=== PATIENT | male | born 1940 | race Two or more races ===

== ENCOUNTER 2022-07-17 20:24 | Observation (INO) ==
[2022-07-17 20:54] LABS: Basophils % 0.3 % (0.0-0.8); Hematocrit 27.9 VOL% (42.0-52.0); Hemoglobin 9.2 GM/DL (14.0-18.0); Immature Granulocytes % 0.5 %; Immature Granulocytes Absolute 0.07 #; Lymphocytes # 3.4 10*3/uL (1.4-4.0); Mean Corpuscular Volume 98.6 FL (87-102); Mean Platelet Volume 10.7 FL (9.6-12.0); Monocytes # 1.3 10*3/uL (0.11-0.8); Monocytes % 8.7 % (1.7-12.7); Neutrophils % 68.5 % (38.7-73.9); Platelet Count 451 T/CUMM (130-400); Red Blood Count 2.83 MC/CUMM (3.8-5.5); Red Cell Distribution Width 18.8 % (9.3-17.3); White Blood Count 15.5 T/CUMM (4-12)
[2022-07-17 21:03] LABS: INR 0.9; PT Patient Result 10.5 SECS (10.1-12.1)
[2022-07-17 21:15] LABS: Albumin 4.3 G/DL (3.4-5.0); Bilirubin,Total 0.8 MG/DL (0.20-1.00); Calcium 9.5 MG/DL (8.5-10.1); Osmolality,Calculated 290.1 MOS/KG (273-304); Total Protein 7.5 G/DL (6.4-8.2)
[2022-07-17] MEDS ORDERED: PROMETHAZINE 25 MG/1 ML VIAL IM STA (21:51)
[2022-07-17] MEDS ORDERED: MECLIZINE 25 MG TABLET PO STA (21:51)
[2022-07-17] MEDS ORDERED: SODIUM CHLORIDE 0.9% 500 ML IV STA (23:11)
[2022-07-17 23:34] LABS: Bilirubin,Urine Negative (Negative); Blood, Urine Negative (Negative); Glucose,Urine (UA) Negative (Negative); Ketones,Urine Negative (Negative); Mucus,Urine Occasional /LPF (Occasional); Nitrite,Urine Negative (Negative); Protein,Urine 30 mg/dL (Negative); RBC,Urine 1 /HPF (0-4); Urine Appearance CLEAR (Clear); Urine Color Straw (Yellow); Urine Urobilinogen < 2.0 eU/dL (<2.0)
[2022-07-18] MEDS ORDERED: PROMETHAZINE 25 MG/1 ML VIAL IM PRN (01:55)
[2022-07-18] MEDS ORDERED: ONDANSETRON 4 MG/2 ML VIAL IV PRN (01:55)
[2022-07-18] MEDS ORDERED: ACETAMINOPHEN 325 MG TABLET PO PRN (01:55)
[2022-07-18] MEDS ORDERED: hydrALAZINE 20 MG/1 ML VIAL IV PRN (01:55)
[2022-07-18] MEDS ORDERED: ALBUTEROL/IPRATROPIUM 3 ML NEB RESP TX PRN (02:51)
[2022-07-18] MEDS: LACTATED RINGERS 1,000 ML IV SCH ×2 (04:20→22:16)
[2022-07-18 04:37] LABS: Basophils % 0.1 % (0.0-0.8); Hematocrit 26.9 VOL% (42.0-52.0); Hemoglobin 9.1 GM/DL (14.0-18.0); Immature Granulocytes % 0.6 %; Immature Granulocytes Absolute 0.08 #; Lymphocytes # 1.1 10*3/uL (1.4-4.0); Lymphocytes % 7.9 % (21.2-54.2); Mean Corpuscular HGB Conc 33.8 GM/DL (32-36); Mean Corpuscular Volume 98.5 FL (87-102); Mean Platelet Volume 10.8 FL (9.6-12.0); Monocytes # 0.8 10*3/uL (0.11-0.8); Monocytes % 5.4 % (1.7-12.7); Platelet Count 407 T/CUMM (130-400); Red Blood Count 2.73 MC/CUMM (3.8-5.5); Red Cell Distribution Width 18.9 % (9.3-17.3); White Blood Count 14.1 T/CUMM (4-12)
[2022-07-18 04:49] LABS: Calcium 9.2 MG/DL (8.5-10.1); Osmolality,Calculated 286.3 MOS/KG (273-304)
[2022-07-18 04:56] LABS: Folate 12.14 NG/ML (5.38-24.0)
[2022-07-18 04:58] LABS: % Iron Saturation 16.9 % (18-50); Ferritin 530.3 ng/mL (26-388)
[2022-07-18] MEDS: SODIUM BICARBONATE 650 MG TABLET PO SCH ×2 (08:57→20:24)
[2022-07-18] MEDS: ATORVASTATIN 80 MG TABLET PO SCH (08:57)
[2022-07-18] MEDS: PANTOPRAZOLE 40 MG TABLET PO SCH (08:57)
[2022-07-18] MEDS: ASPIRIN EC 81 MG TABLET PO SCH (08:57)
[2022-07-18] MEDS: CHOLECALCIFEROL 1,000 UNIT TABLET PO SCH (09:30)
[2022-07-18] MEDS: ASCORBIC ACID 500 MG TABLET PO SCH (09:30)
[2022-07-18] MEDS: CALCIUM CARB MAG OX ZINC SULF PO SCH (14:05)
[2022-07-18] MEDS: prednisoLONE ACETATE 1% OPH SUSP 5 ML BOTTLE LEFT EYE SCH (20:23)
[2022-07-18] MEDS ORDERED: ENOXAPARIN 40 MG/0.4 ML SYRINGE SUBCUT SCH (21:00)
[2022-07-19] MEDS ORDERED: SODIUM CHLORIDE 0.65% NASAL SPRAY 45 ML BOTTLE BOTH NARES PRN (03:14)
[2022-07-19 07:53] LABS: Basophils % 0.3 % (0.0-0.8); Hematocrit 27.6 VOL% (42.0-52.0); Hemoglobin 9.1 GM/DL (14.0-18.0); Immature Granulocytes % 0.4 %; Immature Granulocytes Absolute 0.05 #; Lymphocytes # 2.5 10*3/uL (1.4-4.0); Lymphocytes % 21.1 % (21.2-54.2); Mean Corpuscular Volume 100.7 FL (87-102); Mean Platelet Volume 10.5 FL (9.6-12.0); Monocytes % 8.4 % (1.7-12.7); Neutrophils % 69.8 % (38.7-73.9); Platelet Count 398 T/CUMM (130-400); Red Blood Count 2.74 MC/CUMM (3.8-5.5); Red Cell Distribution Width 18.9 % (9.3-17.3); White Blood Count 11.6 T/CUMM (4-12)
[2022-07-19 08:08] LABS: Calcium 8.8 MG/DL (8.5-10.1); Osmolality,Calculated 296.4 MOS/KG (273-304); Potassium 3.9 MMOL/L (3.5-5.1)
[2022-07-19] MEDS: ASCORBIC ACID 500 MG TABLET PO SCH (08:39)
[2022-07-19] MEDS: ASPIRIN EC 81 MG TABLET PO SCH (08:39)
[2022-07-19] MEDS: ATORVASTATIN 80 MG TABLET PO SCH (08:40)
[2022-07-19] MEDS: CHOLECALCIFEROL 1,000 UNIT TABLET PO SCH (08:40)
[2022-07-19] MEDS: PANTOPRAZOLE 40 MG TABLET PO SCH (08:40)
[2022-07-19] MEDS: SODIUM BICARBONATE 650 MG TABLET PO SCH (08:41)
[2022-07-19] MEDS: prednisoLONE ACETATE 1% OPH SUSP 5 ML BOTTLE LEFT EYE SCH ×2 (08:42→13:39)
[2022-07-19] MEDS: CALCIUM CARB MAG OX ZINC SULF PO SCH (09:31)
[2022-07-19 12:22] VITALS: BP 135/64
[2022-07-19] MEDS ORDERED: TAMSULOSIN 0.4 MG CAPSULE PO SCH ×2 (21:00)
[2022-07-20] MEDS ORDERED: amLODIPine 2.5 MG TABLET PO SCH (09:00)
== END 2022-07-19 15:11 | disposition home or self-care (01) ==
LOC: N.ED 20:24 → N.EDINP 20:24 → N.5E 07-18 14:53
PROVIDERS: ADMIT Family Medicine; ATTEND Family Medicine